=== PATIENT | male | born 1970 | race Caucasian/White ===

== ENCOUNTER 2017-03-28 11:06 | Inpatient (IN) | payer OTHER ==
[2017-03-28 11:49] VITALS: BMI 25.7
--- NOTE | 2017-03-28 15:59 | HP ---
CIWA Score - CIWA Score Nausea/Vomitin (N/V/D) Muscle Tremors: 4-Moderate,w/Arms Extend Anxiety: 5 Agitation: 4-Moderately Restless Paroxysmal Sweats: 1-Minimal Palms Moist Orientation: 0-Oriented Tacttile Disturbances: 2-Mild Itch/Numbness/Burn Auditory Disturbances: 0-None Visual Disturbances: 0-None Headache: 0-None Present CIWA-Ar Total Score: 21 Admission ROS BHS - HPI Chief Complaint: DETOX TX FOR ALCOHOL DEPENDENCE Allergies/Adverse Reactions: Allergies Allergy/AdvReac Type Severity Reaction Status Date / Time No Known Allergies Allergy Verified 03/28/17 15:09 History of Present Illness: 46 Y/O MALE WITH A HX OF ALCOHOL DEPENDENCE SEEKING DETOX [place] Exam Limitations: No Limitations - Ebola screening Have you traveled outside of the country in the last 21 days: No Have you had contact with anyone from an Ebola affected area: No Have you been sick,other than usual withdrawal symptoms: No Do you have a fever: No - Review of Systems Constitutional: Chills, Loss of Appetite, Night Sweats, Changes in sleep EENT: reports: Blurred Vision (LEFT EYE DIMINISHED VISION PER PT), Tearing (ON EYE DRPS--OPCON -A OR NAPHCON-A.) Respiratory: reports: No Symptoms reported Cardiac: reports: No Symptoms Reported GI: reports: Diarrhea, Nausea, Poor Appetite, Vomiting, Indigestion (ON OMEPRAZOLE) : reports: No Symptoms Reported Musculoskeletal: reports: No Symptoms Reported Integumentary: reports: No Symptoms Reported Neuro: reports: Seizure (X 1 DUE TO ALCOHOL WITHDRAWAL SX), Tremors Endocrine: reports: No Symptoms Reported Hematology: reports: No Symptoms Reported Psychiatric: reports: Anxious, Depressed Other Systems: Reviewed and Negative Patient History - Patient Medical History Hx Anemia: No Hx Asthma: No Hx Chronic Obstructive Pulmonary Disease (COPD): No Hx Cardiac Disorders: No Hx Hypertension: Yes Hx Seizures: Yes (12/28/16 etoh related) Hx Diabetes: No Hx Gastrointestinal Disorders: No Hx Genitourinary Disorders: No Hx Sexually Transmitted Disorders: No Hx Renal Disease (ESRD): No Hx Depression: Yes Hx Suicide Attempt: No Hx Schizophrenia: No Other Medical History: HX BRAIN INJURY DUE TO FALL - Patient Surgical History Past Surgical History: No - PPD History Previous Implant?: Yes Documented Results: Negative w/o proof Implanted On Prior [facility] Admission?: No - Reproductive History Patient is a Female of Child Bearing Age (11 -55 yrs old): No (MALE) - Smoking Cessation Smoking history: Current every day smoker Have you smoked in the past 12 months: Yes Aproximately how many cigarettes per day: 20 Hx Chewing Tobacco Use: No Initiated information on smoking cessation: Yes 'Breaking Loose' booklet given: 03/28/17 - Substance & Tx. History Hx Alcohol Use: Yes (VODKA/BOURBON) Hx Substance Use: No (DENIES) Substance Use Type: Alcohol Hx Substance Use Treatment: Yes ([place], [place] JanuaryFEBRUARY 2017) - Substances Abused Alcohol Route: Oral Frequency: Daily Amount used: FIFTH OF VODKA Age of first use: 21 Date of Last Use: 03/28/17 Family Disease History - Family Disease History Family Disease History: Other: Father (ALCOHOLISM-), Sister (RECOVERING ALCOHOLISM;BIPOLAR DISORDER) Admission Physical Exam BHS - Vital Signs Vital Signs: Vital Signs - 24 hr 03/28/17 11:45 Temperature 96.8 F L Pulse Rate 91 H Respiratory 18 Rate Blood Pressure 148/91 - Physical General Appearance: Yes: Moderate Distress, Irritable, Anxious HEENTM: Yes: EOMI, Normocephalic, SADIE, Pharynx Normal, Nasal Congestion, Rhinorrhea Respiratory: Yes: Chest Non-Tender, Lungs Clear, Normal Breath Sounds, No Respiratory Distress Neck: Yes: Supple, Trachea in good position Breast: Yes: Breast Exam Deferred Cardiology: Yes: Regular Rhythm, Regular Rate, S1, S2 Abdominal: Yes: Normal Bowel Sounds, Non Tender, Soft Genitourinary: Yes: Other (N/C) Back: Yes: Within Normal Limits Musculoskeletal: Yes: full range of Motion, Gait Steady Extremities: Yes: Normal Range of Motion, Non-Tender, Tremors 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 intact, Fully Oriented, Alert Integumentary: Yes: Dry, Warm Lymphatic: Yes: Within Normal Limits - Diagnostic (1) Alcohol dependence with uncomplicated withdrawal Current Visit: Yes Status: Acute (2) Personal history of traumatic brain injury Current Visit: Yes Status: Suspected (3) HTN (hypertension) Current Visit: Yes Status: Chronic Qualifiers: Hypertension type: essential hypertension Qualified Code(s): I10 - Essential (primary) hypertension (4) GERD (gastroesophageal reflux disease) Current Visit: Yes Status: Chronic Qualifiers: Esophagitis presence: without esophagitis Qualified Code(s): K21.9 - Gastro-esophageal reflux disease without esophagitis (5) Dry eye syndrome Current Visit: Yes Status: Chronic Qualifiers: Laterality: bilateral Qualified Code(s): H04.123 - Dry eye syndrome of bilateral lacrimal glands Cleared for Admission BHS - Detox or Rehab [facility] Level of Care: Medically Managed Detox Regimen/Protocol: Librium S Breath Alcohol Content Breath Alcohol Content: 0.077 Urine Drug Screen - Results Drug Screen Negative: Yes
[2017-03-28] MEDS ORDERED: MAG HYDROX/AL HYDROX/SIMETH 30 ML UNIT-DOSE CUP PO PRN (16:17)
[2017-03-28] MEDS ORDERED: MAGNESIUM HYDROX 2400MG/30ML ORAL SUSPENSION 30 ML CUP PO PRN (16:17)
[2017-03-28] MEDS ORDERED: MAGNESIUM CITRATE 300 ML BOTTLE PO PRN (16:17)
[2017-03-28] MEDS ORDERED: chlordiazePOXIDE HCL 25 MG CAPSULE PO PRN (16:17)
[2017-03-28] MEDS ORDERED: guaiFENesin/D-METHORPHAN HB 10 ML UNIT-DOSE CUPS PO PRN (16:17)
[2017-03-28] MEDS ORDERED: hydrOXYzine PAMOATE 25 MG CAPSULE (FP) PO PRN (16:17)
[2017-03-28] MEDS ORDERED: IBUPROFEN 400 MG TABLET (FP) PO PRN (16:17)
[2017-03-28] MEDS ORDERED: P-EPHED 60MG/TRIPROLIDI 2.5MG TABLET PO PRN (16:17)
[2017-03-28] MEDS ORDERED: MENTHOL/PHENOL 1 EACH UD MM PRN (16:17)
[2017-03-28] MEDS ORDERED: NICOTINE POLACRILEX 4 MG GUM BC PRN (16:17)
[2017-03-28] MEDS ORDERED: ACETAMINOPHEN 325 MG TABLET (FP) PO PRN (16:17)
[2017-03-28] MEDS ORDERED: LOPERAMIDE HCL 2 MG CAPSULE PO PRN (16:17)
[2017-03-28] MEDS ORDERED: ONDANSETRON *ODT* 4 MG TABLET SL PRN (16:56)
[2017-03-28] MEDS: PANTOPRAZOLE 40 MG TABLET (FP) PO SCH (17:12)
[2017-03-28] MEDS: chlordiazePOXIDE HCL 25 MG CAPSULE PO SCH ×2 (17:12→22:21)
[2017-03-28] MEDS: ENALAPRIL MALEATE 10 MG TABLET (FP) PO SCH (17:12)
[2017-03-28] MEDS: CHOLECALCIFEROL (VITAMIN D3) 1,000 UNIT TABLET (FP) PO SCH (17:12)
[2017-03-28] MEDS: NICOTINE 21 MG/24 HOURS TOPICAL PATCH TD SCH (17:18)
[2017-03-28 21:08] LABS: URINE APPEARANCE CLEAR; URINE BILIRUBIN NEGATIVE (NEGATIVE); URINE BLOOD NEGATIVE (NEGATIVE); URINE COLOR DKYELLOW; URINE GLUCOSE (UA) NEGATIVE (NEGATIVE); URINE KETONE 1+ (NEGATIVE); URINE LEUK ESTERASE NEGATIVE (NEGATIVE); URINE NITRITE NEGATIVE (NEGATIVE); URINE UROBILINOGEN NEGATIVE E.U./dl (0.2-1.0)
[2017-03-28 21:14] LABS: URINE PROTEIN 2+ (NEGATIVE)
[2017-03-28 21:18] LABS: URINE BACTERIA RARE /hpf (NONE SEEN); URINE HYALINE CAST 3 /lpf; URINE MUCUS MANY; URINE RBC <1 /hpf (0-3); URINE WBC 4 /hpf (3-5)
[2017-03-28] MEDS: THIAMINE HCL 100 MG TABLET (FP) PO SCH (22:21)
[2017-03-28] MEDS: diphenhydrAMINE HCL 50 MG CAPSULE PO PRN (22:22)
[2017-03-29] MEDS: chlordiazePOXIDE HCL 25 MG CAPSULE PO SCH ×4 (05:32→22:16)
[2017-03-29 10:08] LABS: MCH 31.7 pg (25.7-33.7); MCHC 33.6 g/dl (32.0-35.9); MEAN CELL VOLUME 94.3 fl (80-96); MEAN PLT VOLUME 8.1 fl (7.5-11.1); PLATELET COUNT 301 K/MM3 (134-434); RDW 13.2 % (11.9-15.9); WHITE BLOOD COUNT 11.7 K/mm3 (4.0-10.0)
[2017-03-29] MEDS: NICOTINE 21 MG/24 HOURS TOPICAL PATCH TD SCH (10:17)
[2017-03-29] MEDS: PANTOPRAZOLE 40 MG TABLET (FP) PO SCH (10:17)
[2017-03-29] MEDS: PRENATAL VITAMINS W/ FOLIC ACID TABLET (FP) PO SCH (10:17)
[2017-03-29] MEDS: CHOLECALCIFEROL (VITAMIN D3) 1,000 UNIT TABLET (FP) PO SCH (10:17)
[2017-03-29] MEDS: ENALAPRIL MALEATE 10 MG TABLET (FP) PO SCH (10:17)
--- NOTE | 2017-03-29 10:17 | CONSULT ---
[facility] Psychiatric Consult - Data Date of interview: 03/29/17 Admission source: [facility] Identifying data: First admission to [facility] for this 46 y/o male seeking detox treatment for alcohol dependence.Patient is ,a father of one,homeless,unemployed and evasive about his means of support. Substance Abuse History: - Smoking Cessation. Smoking history: Current every day smoker. Have you smoked in the past 12 months: Yes. Aproximately how many cigarettes per day: 20. Hx Chewing Tobacco Use: No. Initiated information on smoking cessation: Yes. 'Breaking Loose' booklet given: 03/28/17. - Substance & Tx. History. Hx Alcohol Use: Yes (VODKA/BOURBON). Hx Substance Use: No ( DENIES). Substance Use Type: Alcohol. Hx Substance Use Treatment: Yes ( [place], [place] FEBRUARY 2017). - Substances Abused. Alcohol. Route: Oral. Frequency: Daily. Amount used: FIFTH OF VODKA. Age of first use: 21. Date of Last Use: 03/28/17. Confirmed by patient. 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 Psychiatric History: No reported history of psychiatric hospitalizations.Diagnosed with Bipolar Disorder.Followed at the [facility] clinic in [facility].Medications are managed by Dr Prescott and consit of depakote 500 mg po bid + seroquel 25 mg po bid + prozac 20 mg/ day.Last taken two days ago.Mr Galdamez denies history of suicide attempts. Physical/Sexual Abuse/Trauma History: No reported history of sexual abuse. Additional Comment: Drug Screen is negative. Mental Status Exam - Mental Status Exam Alert and Oriented to: Time, Place, Person Cognitive Function: Good Patient Appearance: Well Groomed Mood: Nervous, Anxious Affect: Labile Patient Behavior: Cooperative (well-mannered) Speech Pattern: Clear Voice Loudness: Normal Thought Process: Goal Oriented Thought Disorder: Not Present Hallucinations: Denies Suicidal Ideation: Denies Homicidal Ideation: Denies Insight/Judgement: Fair Sleep: Poorly, Difficulty falling asleep Appetite: Good Muscle strength/Tone: Normal Gait/Station: Normal Psychiatric Findings - Problem List ([place] 1, 2,3) (1) Alcohol dependence with uncomplicated withdrawal Current Visit: Yes Status: Acute (2) Alcohol-induced mood disorder Current Visit: Yes Status: Acute (3) Mood disorder as late effect of traumatic brain injury Current Visit: Yes Status: Suspected (4) GERD (gastroesophageal reflux disease) Current Visit: Yes Status: Chronic Qualifiers: Esophagitis presence: without esophagitis Qualified Code(s): K21.9 - Gastro-esophageal reflux disease without esophagitis (5) HTN (hypertension) Current Visit: Yes Status: Chronic Qualifiers: Hypertension type: essential hypertension Qualified Code(s): I10 - Essential (primary) hypertension (6) Personal history of traumatic brain injury Current Visit: Yes Status: Chronic (7) Insomnia Current Visit: Yes Status: Acute - Initial Treatment Plan Initial Treatment Plan: Psychoeducation.Detoxification.Medications : depakote 500 mg po bid + seroquel 25 mg po bid + prozac 20 mg po daily.Side effects/ benefits discussed with patient.Made aware of risk for suicidal ideation/sexual dysfunction (prozac),anemia,blood dyscrasias,liver dysfunction,alopecia,weight gain (depakote) and sedation,metabolic syndrome,abnormal involuntary movements ( seroquel).Combination is well tolerated and effective,according to patient.Mr Galdamez agrees to continue this regime of medications.Valproic acid level is requested.Will follow.Seizures precautions.Observation.Pharmacy claims were reviewed (scripts for all three medications issued on 03/27/[address] [id number]).NO scripts needed at discharge.
--- NOTE | 2017-03-29 10:34 | PN ---
[facility] CIWA - CIWA Score Nausea/Vomitin-No Nausea/No Vomiting Muscle Tremors: 4-Moderate,w/Arms Extend Anxiety: 4-Mod. Anxious/Guarded Agitation: 4-Moderately Restless Paroxysmal Sweats: 1-Minimal Palms Moist Orientation: 0-Oriented Tacttile Disturbances: 3-Moderate Itch/Numb/Burn Auditory Disturbances: 0-None Visual Disturbances: 0-None Headache: 0-None Present CIWA-Ar Total Score: 16 BHS Progress Note (SOAP) Subjective: ANXIETY,SWEATS,IRRITABILITY, NAUSEA. Objective: 03/29/17 10:33 Vital Signs Temperature 98.2 F 03/29/17 09:28 Pulse Rate 102 H 03/29/17 09:28 Respiratory Rate 20 03/29/17 09:28 Blood Pressure 121/83 03/29/17 09:28 O2 Sat by Pulse Oximetry (%) Laboratory Last Values Sodium 136 mmol/L (136-145) 03/29/17 06:00 Potassium 3.8 mmol/L (3.5-5.1) 03/29/17 06:00 Chloride 97 mmol/L (98-107) L 03/29/17 06:00 Urine Color Dkyellow 03/28/17 20:45 Urine Appearance Clear 03/28/17 20:45 Urine pH 5.0 (5.0-8.0) 03/28/17 20:45 Ur Specific [place] >= 1.030 (1.005-1.025) H 03/28/17 20:45 Urine Protein 2+ (NEGATIVE) H 03/28/17 20:45 Urine Glucose (UA) Negative (NEGATIVE) 03/28/17 20:45 Urine Ketones 1+ (NEGATIVE) H 03/28/17 20:45 Urine Blood Negative (NEGATIVE) 03/28/17 20:45 Urine Nitrite Negative (NEGATIVE) 03/28/17 20:45 Urine Bilirubin Negative (NEGATIVE) 03/28/17 20:45 Urine Urobilinogen Negative E.U./dl (0.2-1.0) 03/28/17 20:45 Ur Leukocyte Esterase Negative (NEGATIVE) 03/28/17 20:45 Urine RBC <1 /hpf (0-3) 03/28/17 20:45 Urine WBC 4 /hpf (3-5) 03/28/17 20:45 Ur Epithelial Cells Rare /hpf (FEW) 03/28/17 20:45 Urine Bacteria Rare /hpf (NONE SEEN) 03/28/17 20:45 Hyaline Casts 3 /lpf 03/28/17 20:45 Urine Mucus Many 03/28/17 20:45 Assessment: 03/29/17 10:33 WITHDRAWAL SX Plan: CONTINUE DETOX
[2017-03-29 10:44] LABS: ALBUMIN 4.3 g/dl (3.4-5.0); ALK PHOS 74 U/L (45-117); ANION GAP 20 (8-16); BILIRUBIN,TOTAL 1.1 mg/dL (0.2-1.0); CALCIUM 9.2 mg/dL (8.5-10.1); CO2 19 mmol/L (21-32); COCKROFT - GAULT 112.51; GLUCOSE,RANDOM 92 mg/dL (74-106); SGOT/AST 100 U/L (15-37); SGPT/ALT 77 U/L (12-78)
--- NOTE | 2017-03-29 10:59 | EKG ---
Test Reason : Blood Pressure : / mmHG Vent. Rate : 108 BPM Atrial Rate : 108 BPM P-R Int : 136 ms QRS Dur : 084 ms QT Int : 344 ms P-R-T Axes : 068 057 045 degrees QTc Int : 460 ms SINUS TACHYCARDIA OTHERWISE NORMAL ECG NO PREVIOUS ECGS AVAILABLE Confirmed by AGUSTIN COLLAZO MD ([id number]) on 03/29/2017 10:59:18 AM Referred By: Marshal Mello Confirmed By:AGUSTIN COLLAZO MD
[2017-03-29] MEDS: QUEtiapine FUMARATE 25 MG TABLET (FP) PO SCH ×2 (11:28→22:16)
[2017-03-29] MEDS: DIVALPROEX SODIUM 500 MG TABLET E.C. PO SCH ×2 (11:28→22:16)
[2017-03-29] MEDS: FLUoxetine HCL 20 MG CAPSULE (FP) PO SCH (11:28)
[2017-03-29] MEDS: NAPHAZOLINE/PHENIRAMINE OPHTHALMIC 15 ML BOTTLE OU PRN ×2 (13:25→13:43)
[2017-03-29] MEDS ORDERED: [UNRECOGNIZED DRUG - OTHER] OP SCH (14:00)
[2017-03-29] MEDS ORDERED: [UNRECOGNIZED DRUG - OTHER] OU SCH (14:00)
[2017-03-29] MEDS: THIAMINE HCL 100 MG TABLET (FP) PO SCH (22:16)
[2017-03-30] MEDS: chlordiazePOXIDE HCL 25 MG CAPSULE PO SCH ×2 (05:55→10:18)
[2017-03-30] MEDS: NAPHAZOLINE/PHENIRAMINE OPHTHALMIC 15 ML BOTTLE OU PRN (05:57)
[2017-03-30] MEDS: FLUoxetine HCL 20 MG CAPSULE (FP) PO SCH (10:18)
[2017-03-30] MEDS: PANTOPRAZOLE 40 MG TABLET (FP) PO SCH (10:18)
[2017-03-30] MEDS: QUEtiapine FUMARATE 25 MG TABLET (FP) PO SCH ×2 (10:18→22:17)
[2017-03-30] MEDS: ENALAPRIL MALEATE 10 MG TABLET (FP) PO SCH (10:18)
[2017-03-30] MEDS: DIVALPROEX SODIUM 500 MG TABLET E.C. PO SCH ×2 (10:18→22:17)
[2017-03-30] MEDS: NICOTINE 21 MG/24 HOURS TOPICAL PATCH TD SCH (10:18)
[2017-03-30] MEDS: CHOLECALCIFEROL (VITAMIN D3) 1,000 UNIT TABLET (FP) PO SCH (10:18)
[2017-03-30] MEDS: PRENATAL VITAMINS W/ FOLIC ACID TABLET (FP) PO SCH (10:18)
--- NOTE | 2017-03-30 10:54 | PN ---
[facility] CIWA - CIWA Score Nausea/Vomitin-Mild Nausea/No Vomiting Muscle Tremors: 4-Moderate,w/Arms Extend Anxiety: 4-Mod. Anxious/Guarded Agitation: 3 Paroxysmal Sweats: 1-Minimal Palms Moist Orientation: 0-Oriented Tacttile Disturbances: 2-Mild Itch/Numbness/Burn Auditory Disturbances: 0-None Visual Disturbances: 0-None Headache: 0-None Present CIWA-Ar Total Score: 15 BHS Progress Note (SOAP) Subjective: ANXIETY,SWEATS, IRRITABILITY, TREMORS. Objective: 03/30/17 10:53 Vital Signs Temperature 95.6 F L 03/30/17 09:47 Pulse Rate 90 03/30/17 09:47 Respiratory Rate 18 03/30/17 09:47 Blood Pressure 112/79 03/30/17 09:47 O2 Sat by Pulse Oximetry (%) Laboratory Last Values WBC 11.7 K/mm3 (4.0-10.0) H 03/29/17 06:00 RBC 4.45 M/mm3 (4.00-5.60) 03/29/17 06:00 Hgb 14.1 GM/dL (11.7-16.9) 03/29/17 06:00 Hct 42.0 % (35.4-49) 03/29/17 06:00 MCV 94.3 fl (80-96) 03/29/17 06:00 MCHC 33.6 g/dl (32.0-35.9) 03/29/17 06:00 RDW 13.2 % (11.9-15.9) 03/29/17 06:00 Plt Count 301 K/MM3 (134-434) 03/29/17 06:00 MPV 8.1 fl (7.5-11.1) 03/29/17 06:00 Sodium 136 mmol/L (136-145) 03/29/17 06:00 Potassium 3.8 mmol/L (3.5-5.1) 03/29/17 06:00 Chloride 97 mmol/L (98-107) L 03/29/17 06:00 Carbon Dioxide 19 mmol/L (21-32) L 03/29/17 06:00 Anion Gap 20 (8-16) H 03/29/17 06:00 BUN 26 mg/dL (7-18) H 03/29/17 06:00 Creatinine 1.0 mg/dL (0.7-1.3) 03/29/17 06:00 Creat Clearance w eGFR > 60 (>60) 03/29/17 06:00 Random Glucose 92 mg/dL (74-106) 03/29/17 06:00 Calcium 9.2 mg/dL (8.5-10.1) 03/29/17 06:00 Total Bilirubin 1.1 mg/dL (0.2-1.0) H 03/29/17 06:00 AST 100 U/L (15-37) H 03/29/17 06:00 ALT 77 U/L (12-78) 03/29/17 06:00 Alkaline Phosphatase 74 U/L (45-117) 03/29/17 06:00 Total Protein 7.0 g/dl (6.4-8.2) 03/29/17 06:00 Albumin 4.3 g/dl (3.4-5.0) 03/29/17 06:00 Urine Color Dkyellow 03/28/17 20:45 Urine Appearance Clear 03/28/17 20:45 Urine pH 5.0 (5.0-8.0) 03/28/17 20:45 Ur Specific [place] >= 1.030 (1.005-1.025) H 03/28/17 20:45 Urine Protein 2+ (NEGATIVE) H 03/28/17 20:45 Urine Glucose (UA) Negative (NEGATIVE) 03/28/17 20:45 Urine Ketones 1+ (NEGATIVE) H 03/28/17 20:45 Urine Blood Negative (NEGATIVE) 03/28/17 20:45 Urine Nitrite Negative (NEGATIVE) 03/28/17 20:45 Urine Bilirubin Negative (NEGATIVE) 03/28/17 20:45 Urine Urobilinogen Negative E.U./dl (0.2-1.0) 03/28/17 20:45 Ur Leukocyte Esterase Negative (NEGATIVE) 03/28/17 20:45 Urine RBC <1 /hpf (0-3) 03/28/17 20:45 Urine WBC 4 /hpf (3-5) 03/28/17 20:45 Ur Epithelial Cells Rare /hpf (FEW) 03/28/17 20:45 Urine Bacteria Rare /hpf (NONE SEEN) 03/28/17 20:45 Hyaline Casts 3 /lpf 03/28/17 20:45 Urine Mucus Many 03/28/17 20:45 RPR Titer Nonreactive (NONREACTIVE) 03/29/17 06:00 Assessment: 03/30/17 10:53 WITHDRAWAL SX Plan: CONTINUE DETOX
[2017-03-30] MEDS: chlordiazePOXIDE 5 MG CAPSULE PO SCH ×2 (17:11→22:17)
[2017-03-30] MEDS: THIAMINE HCL 100 MG TABLET (FP) PO SCH (22:18)
[2017-03-31] MEDS: diphenhydrAMINE HCL 50 MG CAPSULE PO PRN ×2 (00:42→22:25)
[2017-03-31] MEDS: chlordiazePOXIDE 5 MG CAPSULE PO SCH ×2 (05:50→10:42)
[2017-03-31] MEDS: ENALAPRIL MALEATE 10 MG TABLET (FP) PO SCH (10:42)
[2017-03-31] MEDS: FLUoxetine HCL 20 MG CAPSULE (FP) PO SCH (10:42)
[2017-03-31] MEDS: PANTOPRAZOLE 40 MG TABLET (FP) PO SCH (10:42)
[2017-03-31] MEDS: DIVALPROEX SODIUM 500 MG TABLET E.C. PO SCH ×2 (10:42→22:24)
[2017-03-31] MEDS: PRENATAL VITAMINS W/ FOLIC ACID TABLET (FP) PO SCH (10:42)
[2017-03-31] MEDS: QUEtiapine FUMARATE 25 MG TABLET (FP) PO SCH ×2 (10:42→22:24)
[2017-03-31] MEDS: CHOLECALCIFEROL (VITAMIN D3) 1,000 UNIT TABLET (FP) PO SCH (10:43)
[2017-03-31] MEDS: NICOTINE 21 MG/24 HOURS TOPICAL PATCH TD SCH (10:43)
--- NOTE | 2017-03-31 12:04 | PN ---
S Progress Note (SOAP) Subjective: DECREASED ANXIETY,SWEATS,IRRITABILITY,TREMORS. Objective: 03/31/17 12:04 Vital Signs Temperature 96.9 F L 03/31/17 09:11 Pulse Rate 79 03/31/17 09:11 Respiratory Rate 18 03/31/17 09:11 Blood Pressure 112/72 03/31/17 09:11 O2 Sat by Pulse Oximetry (%) Laboratory Last Values WBC 11.7 K/mm3 (4.0-10.0) H 03/29/17 06:00 RBC 4.45 M/mm3 (4.00-5.60) 03/29/17 06:00 Hgb 14.1 GM/dL (11.7-16.9) 03/29/17 06:00 Hct 42.0 % (35.4-49) 03/29/17 06:00 MCV 94.3 fl (80-96) 03/29/17 06:00 MCHC 33.6 g/dl (32.0-35.9) 03/29/17 06:00 RDW 13.2 % (11.9-15.9) 03/29/17 06:00 Plt Count 301 K/MM3 (134-434) 03/29/17 06:00 MPV 8.1 fl (7.5-11.1) 03/29/17 06:00 Sodium 136 mmol/L (136-145) 03/29/17 06:00 Potassium 3.8 mmol/L (3.5-5.1) 03/29/17 06:00 Chloride 97 mmol/L (98-107) L 03/29/17 06:00 Carbon Dioxide 19 mmol/L (21-32) L 03/29/17 06:00 Anion Gap 20 (8-16) H 03/29/17 06:00 BUN 26 mg/dL (7-18) H 03/29/17 06:00 Creatinine 1.0 mg/dL (0.7-1.3) 03/29/17 06:00 Creat Clearance w eGFR > 60 (>60) 03/29/17 06:00 Random Glucose 92 mg/dL (74-106) 03/29/17 06:00 Calcium 9.2 mg/dL (8.5-10.1) 03/29/17 06:00 Total Bilirubin 1.1 mg/dL (0.2-1.0) H 03/29/17 06:00 AST 100 U/L (15-37) H 03/29/17 06:00 ALT 77 U/L (12-78) 03/29/17 06:00 Alkaline Phosphatase 74 U/L (45-117) 03/29/17 06:00 Total Protein 7.0 g/dl (6.4-8.2) 03/29/17 06:00 Albumin 4.3 g/dl (3.4-5.0) 03/29/17 06:00 Urine Color Dkyellow 03/28/17 20:45 Urine Appearance Clear 03/28/17 20:45 Urine pH 5.0 (5.0-8.0) 03/28/17 20:45 Ur Specific [place] >= 1.030 (1.005-1.025) H 03/28/17 20:45 Urine Protein 2+ (NEGATIVE) H 03/28/17 20:45 Urine Glucose (UA) Negative (NEGATIVE) 03/28/17 20:45 Urine Ketones 1+ (NEGATIVE) H 03/28/17 20:45 Urine Blood Negative (NEGATIVE) 03/28/17 20:45 Urine Nitrite Negative (NEGATIVE) 03/28/17 20:45 Urine Bilirubin Negative (NEGATIVE) 03/28/17 20:45 Urine Urobilinogen Negative E.U./dl (0.2-1.0) 03/28/17 20:45 Ur Leukocyte Esterase Negative (NEGATIVE) 03/28/17 20:45 Urine RBC <1 /hpf (0-3) 03/28/17 20:45 Urine WBC 4 /hpf (3-5) 03/28/17 20:45 Ur Epithelial Cells Rare /hpf (FEW) 03/28/17 20:45 Urine Bacteria Rare /hpf (NONE SEEN) 03/28/17 20:45 Hyaline Casts 3 /lpf 03/28/17 20:45 Urine Mucus Many 03/28/17 20:45 RPR Titer Nonreactive (NONREACTIVE) 03/29/17 06:00 Assessment: 03/31/17 12:04 WITHDRAWAL SX Plan: CONTINUE DETOX
[2017-03-31] MEDS: NAPHAZOLINE/PHENIRAMINE OPHTHALMIC 15 ML BOTTLE OU PRN (14:02)
[2017-03-31] MEDS: chlordiazePOXIDE HCL 10 MG CAPSULE PO SCH ×2 (16:43→22:24)
[2017-03-31] MEDS: THIAMINE HCL 100 MG TABLET (FP) PO SCH (22:24)
[2017-04-01] MEDS: chlordiazePOXIDE HCL 10 MG CAPSULE PO SCH ×2 (05:58→06:00)
[2017-04-01] MEDS: NAPHAZOLINE/PHENIRAMINE OPHTHALMIC 15 ML BOTTLE OU PRN (06:02)
[2017-04-01 06:18] VITALS: BP 111/80; PULSE 88; TEMP 97
[2017-04-01] MEDS: QUEtiapine FUMARATE 25 MG TABLET (FP) PO SCH (09:10)
[2017-04-01] MEDS: ENALAPRIL MALEATE 10 MG TABLET (FP) PO SCH (09:10)
[2017-04-01] MEDS: FLUoxetine HCL 20 MG CAPSULE (FP) PO SCH (09:10)
[2017-04-01] MEDS: PRENATAL VITAMINS W/ FOLIC ACID TABLET (FP) PO SCH (09:10)
[2017-04-01] MEDS: CHOLECALCIFEROL (VITAMIN D3) 1,000 UNIT TABLET (FP) PO SCH (09:10)
[2017-04-01] MEDS: PANTOPRAZOLE 40 MG TABLET (FP) PO SCH (09:10)
[2017-04-01] MEDS: DIVALPROEX SODIUM 500 MG TABLET E.C. PO SCH (09:10)
[2017-04-01] MEDS: NICOTINE 21 MG/24 HOURS TOPICAL PATCH TD SCH (09:11)
--- NOTE | 2017-04-01 09:52 | DS ---
[facility] Detox Discharge Summary Admission Date: 03/28/17 Discharge Date: 04/01/17 - History Present History: Alcohol Dependence Additional Comments: PT COMPLETED DETOX. ALERT O X 3. NAD. PT INSTRUCTED TO F/U WITH HIS PRIMARY CARE FOR MEDICAL MANAGEMENT OF COMORBID CONDITIONS. PT HAD OWN MEDS. Pertinent Past History: HTN GERD HX HEAD TRUAMA DRY EYE SYNDROME - Physical Exam Results Vital Signs: Vital Signs Temperature 97 F L 04/01/17 06:17 Pulse Rate 88 04/01/17 06:17 Respiratory Rate 18 04/01/17 06:17 Blood Pressure 111/80 04/01/17 06:17 O2 Sat by Pulse Oximetry (%) Pertinent Admission Physical Exam Findings: WITHDRAWAL SX Laboratory Last Values WBC 11.7 K/mm3 (4.0-10.0) H 03/29/17 06:00 RBC 4.45 M/mm3 (4.00-5.60) 03/29/17 06:00 Hgb 14.1 GM/dL (11.7-16.9) 03/29/17 06:00 Hct 42.0 % (35.4-49) 03/29/17 06:00 MCV 94.3 fl (80-96) 03/29/17 06:00 MCHC 33.6 g/dl (32.0-35.9) 03/29/17 06:00 RDW 13.2 % (11.9-15.9) 03/29/17 06:00 Plt Count 301 K/MM3 (134-434) 03/29/17 06:00 MPV 8.1 fl (7.5-11.1) 03/29/17 06:00 Sodium 136 mmol/L (136-145) 03/29/17 06:00 Potassium 3.8 mmol/L (3.5-5.1) 03/29/17 06:00 Chloride 97 mmol/L (98-107) L 03/29/17 06:00 Carbon Dioxide 19 mmol/L (21-32) L 03/29/17 06:00 Anion Gap 20 (8-16) H 03/29/17 06:00 BUN 26 mg/dL (7-18) H 03/29/17 06:00 Creatinine 1.0 mg/dL (0.7-1.3) 03/29/17 06:00 Creat Clearance w eGFR > 60 (>60) 03/29/17 06:00 Random Glucose 92 mg/dL (74-106) 03/29/17 06:00 Calcium 9.2 mg/dL (8.5-10.1) 03/29/17 06:00 Total Bilirubin 1.1 mg/dL (0.2-1.0) H 03/29/17 06:00 AST 100 U/L (15-37) H 03/29/17 06:00 ALT 77 U/L (12-78) 03/29/17 06:00 Alkaline Phosphatase 74 U/L (45-117) 03/29/17 06:00 Total Protein 7.0 g/dl (6.4-8.2) 03/29/17 06:00 Albumin 4.3 g/dl (3.4-5.0) 03/29/17 06:00 Urine Color Dkyellow 03/28/17 20:45 Urine Appearance Clear 03/28/17 20:45 Urine pH 5.0 (5.0-8.0) 03/28/17 20:45 Ur Specific [place] >= 1.030 (1.005-1.025) H 03/28/17 20:45 Urine Protein 2+ (NEGATIVE) H 03/28/17 20:45 Urine Glucose (UA) Negative (NEGATIVE) 03/28/17 20:45 Urine Ketones 1+ (NEGATIVE) H 03/28/17 20:45 Urine Blood Negative (NEGATIVE) 03/28/17 20:45 Urine Nitrite Negative (NEGATIVE) 03/28/17 20:45 Urine Bilirubin Negative (NEGATIVE) 03/28/17 20:45 Urine Urobilinogen Negative E.U./dl (0.2-1.0) 03/28/17 20:45 Ur Leukocyte Esterase Negative (NEGATIVE) 03/28/17 20:45 Urine RBC <1 /hpf (0-3) 03/28/17 20:45 Urine WBC 4 /hpf (3-5) 03/28/17 20:45 Ur Epithelial Cells Rare /hpf (FEW) 03/28/17 20:45 Urine Bacteria Rare /hpf (NONE SEEN) 03/28/17 20:45 Hyaline Casts 3 /lpf 03/28/17 20:45 Urine Mucus Many 03/28/17 20:45 RPR Titer Nonreactive (NONREACTIVE) 03/29/17 06:00 - Treatment Hospital Course: Detox Protocol Followed, Detoxed Safely, Responded well, Discharged Condition Good, Rehab Referral Accepted Patient has Accepted a Rehab Referral to: [facility] - Medication Discharge Medications: Ambulatory Orders Cholecalciferol (Vitamin D3) [Vitamin D3 -] 2,000 unit PO DAILY 03/28/17 Divalproex [Depakote -] 500 mg PO BID 03/28/17 Enalapril Maleate [Vasotec -] 10 mg PO DAILY 03/28/17 Fluoxetine HCl [Prozac -] 20 mg PO DAILY 03/28/17 Multivits,Ca,Min/Iron/FA/Lycop [Centrum Men's Tablet] 1 each PO DAILY 03/28/17 [place]-3S/Dha/Epa/Fish Oil [Fish Oil [place]-3 Softgel] 1 each PO DAILY 03/28/17 Omeprazole 40 mg PO DAILY 03/28/17 Quetiapine Fumarate [Seroquel -] 25 mg PO BID 03/28/17 Vitamin B Complex Vit C No.4 [Super B Complex] 150 mg PO DAILY 03/28/17 Naphazoline HCl/Pheniramine [Naphcon-A Eye Drops] 15 ml OU TID PRN 03/29/17 - Diagnosis (1) Alcohol dependence with uncomplicated withdrawal Status: Acute (2) Personal history of traumatic brain injury Status: Chronic (3) HTN (hypertension) Status: Chronic Qualifiers: Hypertension type: essential hypertension Qualified Code(s): I10 - Essential (primary) hypertension (4) GERD (gastroesophageal reflux disease) Status: Chronic Qualifiers: Esophagitis presence: without esophagitis Qualified Code(s): K21.9 - Gastro-esophageal reflux disease without esophagitis (5) Dry eye syndrome Status: Chronic Qualifiers: Laterality: bilateral Qualified Code(s): H04.123 - Dry eye syndrome of bilateral lacrimal glands (6) Alcohol-induced mood disorder Status: Acute (7) Insomnia Status: Acute (8) Mood disorder as late effect of traumatic brain injury Status: Suspected - AMA Did Patient Leave Against Medical Advice: No
== END 2017-04-01 09:24 | disposition home or self-care (01) | DRG 775 ==
LOC: YASAS 11:06 → Y3N 16:28
PROVIDERS: ADMIT Internal Medicine; ATTEND Internal Medicine
PROC: HZ2ZZZZ Detoxification Services for Substance Abuse Treatment (ICD-10-PCS; principal; 2017-03-28)
DX: F10.230 Alcohol dependence with withdrawal, uncomplicated (principal); F10.24 Alcohol dependence with alcohol-induced mood disorder; F39 Unspecified mood [affective] disorder; I10 Essential (primary) hypertension; K21.9 Gastro-esophageal reflux disease without esophagitis; H04.123 Dry eye syndrome of bilateral lacrimal glands; G47.00 Insomnia, unspecified; Z87.820 Personal history of traumatic brain injury; Z86.69 Personal history of other diseases of the nervous system and sense organs
CPT/HCPCS: 36415; 80053; 81003; 81015; 85027; 86593; 93005; 93010